=== PATIENT | female | born 1990 | race African-American/Black ===

== ENCOUNTER 2017-04-03 21:30 | Inpatient (IN) | payer MEDICAID ==
[~2017-04-03] VITALS: Ht 152.4 cm; Wt 63.1 kg
[2017-04-03 21:30] VITALS: BP 111/64; PULSE 50; TEMP 98.4
[2017-04-03 23:22] VITALS: BP 107/60; PULSE 59; TEMP 97.9
[2017-04-04 04:10] VITALS: BP 108/55; PULSE 60; TEMP 98.2
[2017-04-04 07:03] LABS: BASO % 0.2 % (0.0-2.0); GRAN # 9.8 (1.4-6.5); HEMATOCRIT 38.3 % (37.0-47.0); HEMOGLOBIN 12.8 g/dl (12.5-16.0); LYMPH # 1.9 (1.2-3.4); MEAN CELL VOLUME 91 fl (80.0-100.0); MEAN CORPUSCULAR HEMOGLOBIN 30 pg (27.0-31.0); MEAN CORPUSCULAR HGB CONC 33 g/dl (33.0-37.0); MEAN PLATELET VOLUME 10.1 fl (7.4-10.4); MONO # 0.5 (0.1-0.6); MONO % 4.1 % (1.7-9.3); PLATELET COUNT 491 K/mm3 (130-400); RED BLOOD COUNT 4.23 M/mm3 (4.10-5.30); REDCELL DISTRIBUTION WIDTH-CV 14.1 % (11.5-14.5); WHITE BLOOD COUNT 12.3 K/mm3 (4.8-10.8)
[2017-04-04 07:17] LABS: ADJUSTED CALCIUM 9.2 mg/dL (8.4-10.2); BILIRUBIN,TOTAL 0.3 mg/dL (0.0-1.0); CALCIUM 8.4 mg/dL (8.4-10.2); CREATININE, serum 3.4 mg/dL (0.52-1.25); POTASSIUM 4.5 mmol/L (3.4-5.0); TOTAL PROTEIN 6.8 gm/dL (6.4-8.2)
[2017-04-04 08:14] LABS: CREATININE, serum 3.33 mg/dL (0.52-1.25)
[2017-04-04 08:17] LABS: FRACTIONAL EXCRETION OF NA+ 2.5 %
[2017-04-04 09:00] VITALS: BP 100/58; PULSE 53; TEMP 97.9
[2017-04-04 09:24] LABS: PH 5 (5-8); URINE APPEARANCE Cloudy; URINE BACTERIA Rare /hpf; URINE BILIRUBIN Negative (NEGATIVE); URINE BLOOD 3+ (NEGATIVE); URINE COLOR Yellow; URINE GLUCOSE Negative (NEGATIVE); URINE KETONE Negative (NEGATIVE); URINE RBC 20-50 /hpf; URINE UROBILINOGEN Negative (NEGATIVE); URINE WBC >50 /hpf
[2017-04-04 12:14] VITALS: BP 110/63; PULSE 53; TEMP 97.5
[2017-04-04 16:28] VITALS: BP 95/54; PULSE 57; TEMP 99.4
[2017-04-04 20:49] VITALS: BP 103/56; PULSE 52; TEMP 98.5
[2017-04-04 22:55] VITALS: BP 104/61; PULSE 50; TEMP 98.8
[2017-04-05 02:25] VITALS: BP 116/82; PULSE 49; TEMP 98.6
[2017-04-05 07:21] LABS: MEAN CELL VOLUME 91 fl (80.0-100.0); MEAN CORPUSCULAR HGB CONC 32 g/dl (33.0-37.0); MEAN PLATELET VOLUME 9.8 fl (7.4-10.4); PLATELET COUNT 415 K/mm3 (130-400); RED BLOOD COUNT 3.68 M/mm3 (4.10-5.30); REDCELL DISTRIBUTION WIDTH-CV 14.2 % (11.5-14.5); WHITE BLOOD COUNT 8.9 K/mm3 (4.8-10.8)
[2017-04-05 07:22] LABS: HEMATOCRIT 33.4 % (37.0-47.0); HEMOGLOBIN 10.8 g/dl (12.5-16.0); MEAN CORPUSCULAR HEMOGLOBIN 29 pg (27.0-31.0)
[2017-04-05 07:23] LABS: ADD PATHOLOGY DIFF REVIEW NO
[2017-04-05 07:32] LABS: ALBUMIN 2.8 gm/dL (3.5-5.0); BILIRUBIN,TOTAL 0.3 mg/dL (0.0-1.0); CREATININE, serum 1.99 mg/dL (0.52-1.25); POTASSIUM 3.8 mmol/L (3.4-5.0); TOTAL PROTEIN 6.2 gm/dL (6.4-8.2)
[2017-04-05 08:52] VITALS: BP 110/70; PULSE 52; TEMP 97.8
[2017-04-05 09:08] LABS: BAND 7 % (0-10); BASOPHIL 2 % (0-2); NEUTROPHILS 53 % (42.0-75.2); TOTAL CELLS COUNTED 100
[2017-04-05 09:09] LABS: HYPOCHROMIA 1+
[2017-04-05] MEDS ORDERED: CIPRO 250MG TA250 MG PO (10:26)
[2017-04-05 12:13] VITALS: BP 129/75; PULSE 45; TEMP 98.3
[2017-04-05 15:08] VITALS: BP 118/71; PULSE 49; TEMP 98.5
== END 2017-04-05 16:35 | disposition home or self-care (01) | DRG 683 ==
LOC: MEDICAL 21:30 → EDSTATUS 04-07 11:55
PROVIDERS: Internal Medicine Nephrology
DX: N17.0 Acute kidney failure with tubular necrosis (principal); N39.0 Urinary tract infection, site not specified; A52.3 Neurosyphilis, unspecified; A54.9 Gonococcal infection, unspecified; G44.209 Tension-type headache, unspecified, not intractable; F17.210 Nicotine dependence, cigarettes, uncomplicated
CPT/HCPCS: OP; J7030